=== PATIENT | female | born 1980 | race Caucasian/White ===

== ENCOUNTER 2017-04-08 16:04 | Emergency (ER) | payer MEDICAID | END 2017-04-08 16:37 | disposition home or self-care (01) | LOC: E/R 16:04 | DX: J34.89 Other specified disorders of nose and nasal sinuses (principal) | CPT/HCPCS: 99282; Z7502 ==

== ENCOUNTER 2017-04-11 05:44 | Emergency (ER) | payer MEDICAID | END 2017-04-11 07:33 | disposition home or self-care (01) | LOC: FTE 05:44 | DX: K13.0 Diseases of lips (principal) | CPT/HCPCS: 99282; Z7502 ==